=== PATIENT | female | born 1935 | race Caucasian/White ===

== ENCOUNTER 2021-06-18 12:03 | Inpatient (IN) | payer MEDICARE, OTHER ==
[~2021-06-18] VITALS: Ht 152.4 cm; Wt 42.6 kg
[2021-06-18 14:09] LABS: HEMOGLOBIN 11.4 gm/dl (12.3-15.3); RED BLOOD COUNT 3.74 M/UL (4.00-5.10); WHITE BLOOD COUNT 8.9 K/UL (4.5-11.0)
[2021-06-18 14:49] LABS: BUN/CREATININE RATIO 18 (0-10)
--- NOTE | 2021-06-18 20:52 | NUR ---
PT DOESNT HAVE MEDICATION BOTTLES WITH HER. PHARMACY TO COMPLETE HOME MED REC IN AM. WILL CONTINUE TO MONITOR.
[2021-06-19 04:16] LABS: HEMOGLOBIN 10.8 gm/dl (12.3-15.3); RED BLOOD COUNT 3.53 M/UL (4.00-5.10); WHITE BLOOD COUNT 7.3 K/UL (4.5-11.0)
[2021-06-19 04:33] LABS: BUN/CREATININE RATIO 22 (0-10)
[2021-06-19] MEDS ORDERED: DEXILANT60 MG PO (11:13)
[2021-06-19] MEDS ORDERED: ELIQUIS 2.5 MG2.5 MG PO (11:14)
[2021-06-19] MEDS ORDERED: CARVEDILOL12.5 MG PO (11:17)
[2021-06-19] MEDS ORDERED: PERCOCET 5-3251 EACH PO (11:18)
[2021-06-19] MEDS ORDERED: LEVSIN-SL0.125 MG SL (11:24)
[2021-06-19] MEDS ORDERED: AMLODIPINE BESYL5 MG PO (11:25)
[2021-06-19] MEDS ORDERED: DIPHENOXYLATE-1 EACH PO (11:27)
[2021-06-19] MEDS ORDERED: OMEGA-3 ACID ETH1 GM PO (11:32)
[2021-06-19] MEDS ORDERED: LACTULOSE10 GM/15 M PO (11:34)
[2021-06-19] MEDS ORDERED: BIOTIN1 MG PO (11:34)
[2021-06-19] MEDS ORDERED: CALCIUM 500 +1 EAC3 PO (11:37)
[2021-06-19] MEDS ORDERED: MULTIVITAMIN1 EACH PO (11:38)
[2021-06-19] MEDS ORDERED: TYLENOL325 MG PO (11:38)
[2021-06-19] MEDS ORDERED: COREG 3.125M3.125 MG PO (14:38)
[2021-06-19] MEDS ORDERED: NUTRITIONAL DR237 ML PO (14:43)
[2021-06-20] MEDS ORDERED: NUTRITIONAL DR237 ML PO (13:55)
== END 2021-06-20 15:35 | disposition home or self-care (01) | DRG 204 ==
LOC: ER1 12:03 → MED SURG 4 17:09 → CDU 17:09 → MED SURG 4 20:18
PROVIDERS: Physician Assistant; ADMIT Internal Medicine
DX: R91.8 Other nonspecific abnormal finding of lung field (principal); I48.20 Chronic atrial fibrillation, unspecified; Z68.1 Body mass index [BMI] 19.9 or less, adult; I11.0 Hypertensive heart disease with heart failure; Z20.822 Contact with and (suspected) exposure to COVID-19; I50.9 Heart failure, unspecified; R63.4 Abnormal weight loss; M81.0 Age-related osteoporosis without current pathological fracture; K64.9 Unspecified hemorrhoids; Z88.2 Allergy status to sulfonamides; Z80.3 Family history of malignant neoplasm of breast; Z79.01 Long term (current) use of anticoagulants; Z98.890 Other specified postprocedural states; Z98.891 History of uterine scar from previous surgery; Z90.49 Acquired absence of other specified parts of digestive tract
CPT/HCPCS: 70450; 71045; 71260; 72125; 80048; 80053; 81001; 82550; 82553; 84484; 85025; 85027; 93005; 96374; 97161; 97165; 99285; J2405; Q9967; U0002